=== PATIENT | female | born 1995 | race Two or more races ===

== ENCOUNTER 2025-01-10 19:45 | Emergency (ER) | payer MEDICAID, SELFPAY ==
[2025-01-10 19:46] VITALS: BMI 36.0
[2025-01-10 20:36] VITALS: BP 121/80; PULSE 93; RESP 20; TEMP 36.6; O2SAT 95
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
== END 2025-01-10 21:28 | disposition left against medical advice (07) ==
PROVIDERS: Emergency Provider Emergency Medicine
DX: S13.4XXA Sprain of ligaments of cervical spine, initial encounter (principal); Z53.29 Procedure and treatment not carried out because of patient's decision for other reasons; V89.2XXA Person injured in unspecified motor-vehicle accident, traffic, initial encounter
CPT/HCPCS: 81025; 99281

== ENCOUNTER 2025-01-11 17:43 | Emergency (ER) | payer MEDICAID, SELFPAY ==
[2025-01-11 18:29] VITALS: BP 141/87; PULSE 91; RESP 18; TEMP 36.8; O2SAT 98
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
[2025-01-11 20:38] LABS: HCG Qualitative,Urine Negative
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
[2025-01-11] MEDS: KETOROLAC INJ 60 MG/2 ML VIAL 30 MG IM (21:35)
[2025-01-11] MEDS: HYDROcodone/APAP 5/325 TABLET 1 TAB PO (21:35)
== END 2025-01-11 21:36 | disposition home or self-care (01) ==
PROVIDERS: Nurse Practitioner Family; Emergency Provider Emergency Medicine
DX: S13.4XXA Sprain of ligaments of cervical spine, initial encounter (principal); S23.3XXA Sprain of ligaments of thoracic spine, initial encounter; S33.5XXA Sprain of ligaments of lumbar spine, initial encounter; S09.90XA Unspecified injury of head, initial encounter; V49.40XA Driver injured in collision with unspecified motor vehicles in traffic accident, initial encounter; Y92.410 Unspecified street and highway as the place of occurrence of the external cause
CPT/HCPCS: 70450; 72040; 72072; 72100; 81025; 96372; 99284; J1885; A9270